=== PATIENT | male | born 2000 | race African-American/Black ===

== ENCOUNTER 2022-06-13 01:47 | Emergency (ER) | payer OTHER ==
[2022-06-13] MEDS ORDERED: Ketorolac Tromethamine 30 MG/ML VIAL ONE (02:28)
[2022-06-13 02:35] LABS: Hemoglobin 14.6 g/dL (13.5-17.5); MDiff Complete? YES; Mean Corpuscular HGB CONC 34.5 g/dL (32.0-36.0); Mean Corpuscular Hemoglobin 27.2 pg (27.0-33.0); Mean Corpuscular Volume 78.8 fl (81.2-95.1); Mean Platelet Volume 8.7 fl (7.4-10.4); Platelet Count 192 10x3/uL (150-450); Platelet Morphology Comment Appears Adequate; RBC Distribution Width 13.2 % (11.5-14.5); Red Blood Cell (RBC) Count 5.37 10x6/uL (4.32-5.72); White Blood Cell (WBC) Count 5.4 10x3/uL (3.5-10.5)
[2022-06-13 02:51] LABS: ALT (SGPT) 11 U/L (8-55); AST (SGOT) 15 U/L (5-34); Albumin 4.2 g/dL (3.5-5.0); Alkaline Phosphatase 48 U/L (50-130); Anion Gap 18 mmol/L (10-20); BUN (Urea Nitrogen) 13 mg/dL (8.9-20.6); Bilirubin, Total 0.4 mg/dL (0.2-1.2); Calc. Creatinine Clearance 0 mL/min (70-130); Calcium 9.2 mg/dL (7.8-10.44); Carbon Dioxide 22 mmol/L (22-29); Chloride 104 mmol/L (98-107); Estimated GFR 100; Globulin 3.2 g/dL (2.4-3.5); Glucose 87 mg/dL (70-105); Potassium 3.5 mmol/L (3.5-5.1); Protein, Total 7.4 g/dL (6.0-8.3); Sodium 140 mmol/L (136-145)
[2022-06-13 04:03] LABS: Band 5 % (5-11); Eosinophils 4 % (0-10); Lymphocytes 47 % (28-48); Metamyelocyte 1 % (0-0); Monocytes 9 % (0-4); Neutrophil 33 % (31-61); Reactive Lymphocytes 1 % (0-10)
[2022-06-13] MEDS ORDERED: Iopamidol 300 61% 100 ML VIAL FS ONE (08:58)
== END 2022-06-13 04:30 | disposition home or self-care (01) ==
LOC: CSHERS 01:47
DX: K60.2 Anal fissure, unspecified (principal)
CPT/HCPCS: 74177; 80053; 85025; 96374; J1885; Q9967

== ENCOUNTER 2023-02-24 09:45 | Emergency (ER) | payer OTHER, SELFPAY ==
[2023-02-24] MEDS ORDERED: Ketorolac Tromethamine 30 MG/ML VIAL ONE (10:12)
== END 2023-02-24 10:15 | disposition home or self-care (01) ==
LOC: CSHERS 09:45
DX: R51.9 Headache, unspecified (principal)
CPT/HCPCS: 96372; 99283; J1885

== ENCOUNTER 2023-05-18 16:25 | Emergency (ER) | payer OTHER | END 2023-05-18 17:28 | disposition home or self-care (01) | LOC: CSHERS 16:25 | DX: Z76.0 Encounter for issue of repeat prescription (principal) | CPT/HCPCS: 99281 ==

== ENCOUNTER 2023-12-08 22:20 | Emergency (ER) | payer OTHER, SELFPAY ==
[2023-12-08 23:32] LABS: #Basophils 0.02 10x3/uL (0.0-0.2); #Eosinphils 0.08 10x3/uL (0.0-0.5); #Monocytes 0.39 10x3/uL (0.0-1.1); #Neutrophils 1.94 10x3/uL (1.5-8.4); %Basophils 0.4 % (0.0-2.0); %Eosinophils 1.5 % (0.0-6.0); %Lymphocytes 53.5 % (18.0-47.0); %Monocytes 7.4 % (0.0-10.0); %Neutrophils 36.8 % (40.0-75.0); Hematocrit 43.4 % (38.8-50.0); Hemoglobin 14.9 g/dL (13.5-17.5); Mean Corpuscular HGB CONC 34.3 g/dL (32.0-36.0); Mean Corpuscular Hemoglobin 28.7 pg (27.0-33.0); Mean Corpuscular Volume 83.6 fL (81.2-95.1); Mean Platelet Volume 9.7 fL (7.4-10.4); Platelet Count 192 10x3/uL (150-450); Red Blood Cell (RBC) Count 5.19 10x6/uL (4.32-5.72); White Blood Cell (WBC) Count 5.3 10x3/uL (3.5-10.5)
[2023-12-08 23:43] LABS: ALT (SGPT) 9 U/L (8-55); AST (SGOT) 15 U/L (5-34); Albumin 4.1 g/dL (3.5-5.0); Alkaline Phosphatase 47 U/L (40-110); Anion Gap 13 mmol/L (10-20); BUN (Urea Nitrogen) 15 mg/dL (8.9-20.6); Bilirubin, Total 0.4 mg/dL (0.2-1.2); Calc. Creatinine Clearance 0 mL/min (70-130); Calcium 9.3 mg/dL (7.8-10.44); Carbon Dioxide 27 mmol/L (22-29); Chloride 105 mmol/L (98-107); Estimated GFR 75; Glucose 88 mg/dL (70-105); Magnesium 1.8 mg/dL (1.6-2.6); Potassium 3.9 mmol/L (3.5-5.1); Protein, Total 7.1 g/dL (6.0-8.3); Sodium 141 mmol/L (136-145)
== END 2023-12-09 00:53 | disposition home or self-care (01) ==
LOC: CSHERS 22:20
DX: R20.0 Anesthesia of skin (principal); R20.2 Paresthesia of skin
CPT/HCPCS: 80053; 83735; 85025; 93005

== ENCOUNTER 2024-03-08 07:12 | Emergency (ER) | payer OTHER ==
[2024-03-08] MEDS ORDERED: Ondansetron PF 4 MG/2 ML Vial ONE (08:13)
[2024-03-08 08:22] LABS: #Basophils 0.02 10x3/uL (0.0-0.2); #Eosinphils 0.13 10x3/uL (0.0-0.5); #Monocytes 0.37 10x3/uL (0.0-1.1); #Neutrophils 1.79 10x3/uL (1.5-8.4); %Basophils 0.4 % (0.0-2.0); %Eosinophils 2.4 % (0.0-6.0); %Lymphocytes 56.6 % (18.0-47.0); %Monocytes 6.9 % (0.0-10.0); %Neutrophils 33.5 % (40.0-75.0); Hematocrit 46.7 % (38.8-50.0); Hemoglobin 15.8 g/dL (13.5-17.5); Mean Corpuscular HGB CONC 33.8 g/dL (32.0-36.0); Mean Corpuscular Hemoglobin 28.4 pg (27.0-33.0); Mean Corpuscular Volume 83.8 fL (81.2-95.1); Mean Platelet Volume 9.3 fL (7.4-10.4); Platelet Count 186 10x3/uL (150-450); RBC Distribution Width 13.2 % (11.5-14.5); Red Blood Cell (RBC) Count 5.57 10x6/uL (4.32-5.72); White Blood Cell (WBC) Count 5.4 10x3/uL (3.5-10.5)
[2024-03-08 08:42] LABS: ALT (SGPT) 9 U/L (8-55); AST (SGOT) 19 U/L (5-34); Albumin 4.6 g/dL (3.5-5.0); Alkaline Phosphatase 56 U/L (40-110); Anion Gap 17 mmol/L (10-20); BUN (Urea Nitrogen) 12 mg/dL (8.9-20.6); Bilirubin, Total 0.5 mg/dL (0.2-1.2); Calc. Creatinine Clearance 0 mL/min (70-130); Calcium 10.3 mg/dL (7.8-10.44); Carbon Dioxide 23 mmol/L (22-29); Chloride 105 mmol/L (98-107); Estimated GFR 85; Globulin 3.3 g/dL (2.4-3.5); Glucose 88 mg/dL (70-105); Lipase 44 U/L (8-78); Magnesium 2.1 mg/dL (1.6-2.6); Potassium 3.6 mmol/L (3.5-5.1); Protein, Total 7.9 g/dL (6.0-8.3); Sodium 141 mmol/L (136-145)
== END 2024-03-08 09:03 | disposition home or self-care (01) ==
LOC: CSHERS 07:12
DX: R11.0 Nausea (principal); B20 Human immunodeficiency virus [HIV] disease
CPT/HCPCS: 80053; 83690; 83735; 85025; 96374; J2405

== ENCOUNTER 2025-02-19 15:05 | Inpatient (IN) | payer OTHER ==
[2025-02-19] MEDS ORDERED: diphenhydrAMINE 50 MG/ML VIAL ONE (15:44)
[2025-02-19] MEDS ORDERED: Metoclopramide HCl 10 MG (2 mL) VIAL ONE (15:44)
[2025-02-19] MEDS ORDERED: Acetaminophen 325 MG TAB ONE (15:45)
[2025-02-19 16:19] LABS: Hematocrit 52.6 % (38.8-50.0); Hemoglobin 17.0 g/dL (13.5-17.5); Mean Corpuscular Hemoglobin 27.2 pg (27.0-33.0); Mean Corpuscular Volume 84.0 fL (81.2-95.1); Platelet Count 155 10x3/uL (150-450); Red Blood Cell (RBC) Count 6.26 10x6/uL (4.32-5.72); White Blood Cell (WBC) Count 5.85 10x3/uL (3.5-10.5)
[2025-02-19 16:30] LABS: ALT (SGPT) 11 U/L (Less than 45); AST (SGOT) 22 U/L (11-34); Albumin 4.1 g/dL (3.1-4.5); Alkaline Phosphatase 56 U/L (40-110); Anion Gap 16 mmol/L (10-20); BUN (Urea Nitrogen) 26 mg/dL (8.9-20.6); Bilirubin, Total 0.5 mg/dL (0.3-1.2); Calc. Creatinine Clearance 0 mL/min (70-130); Calcium 8.8 mg/dL (7.8-10.44); Carbon Dioxide 26 mmol/L (22-29); Chloride 100 mmol/L (98-107); Globulin 3.9 g/dL (2.4-3.5); Glucose 113 mg/dL (70-105); Lipase 20 U/L (8-78); Potassium 3.6 mmol/L (3.5-5.1); Sodium 138 mmol/L (136-145)
[2025-02-19 17:04] LABS: Dohle Bodies SLIGHT; MDiff Complete? YES; Platelet Adequacy Comment Appears Adequate; Polychromasia SLIGHT = 2-3 cells (100X) (0-2/hpf); Toxic Granulation SLIGHT
[2025-02-19] MEDS ORDERED: Calcium Carbonate 500 MG ChewTAB PO PRN (19:32)
[2025-02-19] MEDS ORDERED: Ondansetron PF 4 MG/2 ML Vial IVP PRN (19:32)
[2025-02-19 19:42] LABS: Anion Gap 15 mmol/L (10-20); BUN (Urea Nitrogen) 25 mg/dL (8.9-20.6); Calc. Creatinine Clearance 0 mL/min (70-130); Calcium 8.1 mg/dL (7.8-10.44); Carbon Dioxide 25 mmol/L (22-29); Chloride 103 mmol/L (98-107); Glucose 111 mg/dL (70-105); Potassium 3.5 mmol/L (3.5-5.1); Sodium 139 mmol/L (136-145)
[2025-02-19] MEDS ORDERED: Electrolyte Replacement Protocol 1 EACH FS PRN (19:45)
[2025-02-19 20:30] LABS: Glucose, Urine (Dipstick) Normal (Negative); Leukocyte Negative (Negative); Protein, Urine (Dipstick) 100 mg/dl (Neg-Trace); Specific Gravity, Urine 1.020 (1.005-1.030)
[2025-02-19 20:53] LABS: Bacteria/HPF 2+ HPF (None Seen); CAUTI Indications for Culture Dysuria,urgency,freq; WBC/HPF 0-3 HPF (0-3)
[2025-02-19] MEDS ORDERED: Ciprofloxacin Lactate/D5W 400 MG in Premix 1 BAG IVPB SCH (21:00)
[2025-02-19 21:09] LABS: Urine Culture Reflex No No
[2025-02-19 21:31] VITALS: BMI 21.7
[2025-02-19] MEDS: cefTRIAXone\\ROCEPHIN 2 GM in Sodium Chloride 0.9% 100 ML IVPB SCH (22:52)
[2025-02-19] MEDS: Famotidine/PF 20 mg/2ml Vial SLOW IVP SCH (22:52)
[2025-02-19] MEDS: Acetaminophen 325 MG TAB PO PRN (23:09)
[2025-02-20 05:15] LABS: Hematocrit 40.4 % (38.8-50.0); Hemoglobin 13.4 g/dL (13.5-17.5); Mean Corpuscular Hemoglobin 27.5 pg (27.0-33.0); Mean Corpuscular Volume 83.0 fL (81.2-95.1); Platelet Count 151 10x3/uL (150-450); Red Blood Cell (RBC) Count 4.87 10x6/uL (4.32-5.72); White Blood Cell (WBC) Count 5.36 10x3/uL (3.5-10.5)
[2025-02-20 05:16] LABS: MDiff Complete? YES; Platelet Adequacy Comment Appears Adequate; RBC Morphology Within Normal Limits
[2025-02-20 05:44] LABS: ALT (SGPT) 9 U/L (Less than 45); AST (SGOT) 19 U/L (11-34); Albumin 2.9 g/dL (3.1-4.5); Alkaline Phosphatase 36 U/L (40-110); Anion Gap 10 mmol/L (10-20); BUN (Urea Nitrogen) 23 mg/dL (8.9-20.6); Bilirubin, Total 0.3 mg/dL (0.3-1.2); Calc. Creatinine Clearance 62 mL/min (70-130); Calcium 7.4 mg/dL (7.8-10.44); Carbon Dioxide 24 mmol/L (22-29); Chloride 107 mmol/L (98-107); Globulin 2.9 g/dL (2.4-3.5); Glucose 117 mg/dL (70-105); Magnesium 1.4 mg/dL (1.6-2.6); Potassium 3.1 mmol/L (3.5-5.1); Sodium 138 mmol/L (136-145)
[2025-02-20] MEDS: Magnesium 2 GM/50 ML(in water) 2 GM in Premix 1 BAG IVPB SCH (06:45)
[2025-02-20] MEDS: metroNIDAZOLE 500 MG TAB PO SCH (07:56)
[2025-02-20 12:52] LABS: Potassium 3.6 mmol/L (3.5-5.1)
[2025-02-20 14:28] LABS: Campy jejuni + coli by PCR Negative (Negative); STEC Shiga Toxin 1+2 Negative (Negative); Salmonella spp. by PCR Negative (Negative); Shigella spp + EIEC by PCR POSITIVE (Negative)
[2025-02-20 15:46] LABS: Anion Gap 11 mmol/L (10-20); BUN (Urea Nitrogen) 16 mg/dL (8.9-20.6); Calc. Creatinine Clearance 77 mL/min (70-130); Calcium 7.5 mg/dL (7.8-10.44); Carbon Dioxide 23 mmol/L (22-29); Chloride 108 mmol/L (98-107); Glucose 90 mg/dL (70-105); Magnesium 2.5 mg/dL (1.6-2.6); Potassium 3.4 mmol/L (3.5-5.1); Sodium 139 mmol/L (136-145)
[2025-02-21 05:28] LABS: Platelet Count 149 10x3/uL (150-450)
[2025-02-21 05:29] LABS: #Basophils Less than 0.03 10x3/uL (0.0-0.2); #Eosinophils 0.03 10x3/uL (0.0-0.5); #Monocytes 0.42 10x3/uL (0.0-1.1); #Neutrophils 3.22 10x3/uL (1.5-8.4); %Basophils 0.3 % (0.0-2.0); %Eosinophils 0.4 % (0.0-6.0); %Lymphocytes 48.8 % (18.0-47.0); %Monocytes 5.7 % (0.0-10.0); %Neutrophils 44.0 % (40.0-75.0); Hematocrit 40.8 % (38.8-50.0); Hemoglobin 13.3 g/dL (13.5-17.5); Mean Corpuscular Hemoglobin 27.1 pg (27.0-33.0); Mean Corpuscular Volume 83.3 fL (81.2-95.1); Red Blood Cell (RBC) Count 4.90 10x6/uL (4.32-5.72); White Blood Cell (WBC) Count 7.32 10x3/uL (3.5-10.5)
[2025-02-21 05:32] LABS: Anion Gap 9 mmol/L (10-20); BUN (Urea Nitrogen) 14 mg/dL (8.9-20.6); Calc. Creatinine Clearance 84 mL/min (70-130); Calcium 8.3 mg/dL (7.8-10.44); Carbon Dioxide 24 mmol/L (22-29); Chloride 111 mmol/L (98-107); Glucose 91 mg/dL (70-105); Magnesium 2.2 mg/dL (1.6-2.6); Potassium 4.0 mmol/L (3.5-5.1); Sodium 140 mmol/L (136-145)
[2025-02-21] MEDS ORDERED: PHOS-NAK 1 PKT PACK PO SCH (08:00)
[2025-02-21] MEDS ORDERED: Non-Formulary Medication 1 EACH (Bictegrav/Emtricit/Tenofov Ala [Biktarvy 50-200-25 Mg Tab PO SCH (09:00)
[2025-02-21 10:19] LABS: Campy jejuni + coli by PCR Negative (Negative); STEC Shiga Toxin 1+2 Negative (Negative); Salmonella spp. by PCR Negative (Negative); Shigella spp + EIEC by PCR POSITIVE (Negative)
[2025-02-21 21:09] LABS: %CD4 (Helper/Inducer) 60.0 % (30.8-58.5); Absolute CD4 1620 /uL (359-1519); Lymphocytes/Gated Cell Count 2.7 x10E3/uL (0.7-3.1); Total Lymphocyte 44 % (Not Estab.); WBC Total Count 6.1 x10E3/uL (3.4-10.8)
[2025-02-22 04:42] LABS: #Basophils 0.04 10x3/uL (0.0-0.2); #Eosinophils 0.10 10x3/uL (0.0-0.5); #Monocytes 0.55 10x3/uL (0.0-1.1); #Neutrophils 2.46 10x3/uL (1.5-8.4); %Basophils 0.6 % (0.0-2.0); %Eosinophils 1.4 % (0.0-6.0); %Lymphocytes 53.9 % (18.0-47.0); %Monocytes 7.8 % (0.0-10.0); %Neutrophils 34.9 % (40.0-75.0); Hematocrit 41.5 % (38.8-50.0); Hemoglobin 13.8 g/dL (13.5-17.5); Mean Corpuscular Hemoglobin 27.5 pg (27.0-33.0); Mean Corpuscular Volume 82.7 fL (81.2-95.1); Platelet Count 150 10x3/uL (150-450); Red Blood Cell (RBC) Count 5.02 10x6/uL (4.32-5.72); White Blood Cell (WBC) Count 7.05 10x3/uL (3.5-10.5)
[2025-02-22 04:58] LABS: ALT (SGPT) 9 U/L (Less than 45); AST (SGOT) 17 U/L (11-34); Albumin 3.1 g/dL (3.1-4.5); Alkaline Phosphatase 38 U/L (40-110); Anion Gap 11 mmol/L (10-20); BUN (Urea Nitrogen) 10 mg/dL (8.9-20.6); Bilirubin, Total 0.2 mg/dL (0.3-1.2); Calc. Creatinine Clearance 97 mL/min (70-130); Calcium 8.8 mg/dL (7.8-10.44); Carbon Dioxide 26 mmol/L (22-29); Chloride 108 mmol/L (98-107); Globulin 3.1 g/dL (2.4-3.5); Glucose 94 mg/dL (70-105); Magnesium 1.9 mg/dL (1.6-2.6); Potassium 4.1 mmol/L (3.5-5.1); Sodium 141 mmol/L (136-145)
[2025-02-22] MEDS: Magnesium 2 GM/50 ML(in water) 2 GM in Premix 1 BAG IVPB SCH (08:15)
[2025-02-22 17:13] LABS: HIV-1 Quantitative, RNA PCR 50.0 copies/mL (.); LOG10 HIV-1 RNA 1.699 (.)
[2025-02-22] MEDS ORDERED: Lidocaine 3%/Hydrocortisone 0.5% CREAM RC SCH (23:15)
[2025-02-23] MEDS: Hydrocortisone/Pramoxine (Proctofoam HC) 10 GM BOX TOP PRN (00:20)
[2025-02-23 05:30] LABS: #Basophils Less than 0.03 10x3/uL (0.0-0.2); #Eosinophils 0.11 10x3/uL (0.0-0.5); #Monocytes 0.42 10x3/uL (0.0-1.1); #Neutrophils 3.14 10x3/uL (1.5-8.4); %Basophils 0.3 % (0.0-2.0); %Eosinophils 1.5 % (0.0-6.0); %Lymphocytes 48.1 % (18.0-47.0); %Monocytes 5.6 % (0.0-10.0); %Neutrophils 42.2 % (40.0-75.0); Hematocrit 42.6 % (38.8-50.0); Hemoglobin 14.2 g/dL (13.5-17.5); Mean Corpuscular Hemoglobin 27.1 pg (27.0-33.0); Mean Corpuscular Volume 81.3 fL (81.2-95.1); Platelet Count 181 10x3/uL (150-450); Red Blood Cell (RBC) Count 5.24 10x6/uL (4.32-5.72); White Blood Cell (WBC) Count 7.44 10x3/uL (3.5-10.5)
[2025-02-23 05:46] LABS: ALT (SGPT) 13 U/L (Less than 45); AST (SGOT) 19 U/L (11-34); Albumin 3.4 g/dL (3.1-4.5); Alkaline Phosphatase 42 U/L (40-110); Anion Gap 11 mmol/L (10-20); BUN (Urea Nitrogen) 12 mg/dL (8.9-20.6); Bilirubin, Total 0.2 mg/dL (0.3-1.2); Calc. Creatinine Clearance 102 mL/min (70-130); Calcium 8.8 mg/dL (7.8-10.44); Carbon Dioxide 25 mmol/L (22-29); Chloride 107 mmol/L (98-107); Globulin 3.2 g/dL (2.4-3.5); Glucose 90 mg/dL (70-105); Magnesium 1.9 mg/dL (1.6-2.6); Potassium 3.7 mmol/L (3.5-5.1); Sodium 139 mmol/L (136-145)
[2025-02-23] MEDS: Magnesium 2 GM/50 ML(in water) 2 GM in Premix 1 BAG IVPB SCH (08:49)
[2025-02-23 12:25] VITALS: BP 99/61; TEMP 98
[2025-02-23] MEDS: cefTRIAXone\\ROCEPHIN 2 GM in Sodium Chloride 0.9% 100 ML IVPB SCH (13:34)
== END 2025-02-23 16:53 | disposition home or self-care (01) | DRG 372 ==
LOC: CSHERS 15:05 → SUATTDRO 15:05 → CSHTELE 19:31
PROVIDERS: ADMIT Internal Medicine; ATTEND Internal Medicine
DX: A03.0 Shigellosis due to Shigella dysenteriae (principal); E87.20 Acidosis, unspecified; N17.9 Acute kidney failure, unspecified; Q60.0 Renal agenesis, unilateral; R19.7 Diarrhea, unspecified; E86.0 Dehydration; Z21 Asymptomatic human immunodeficiency virus [HIV] infection status; F32.A Depression, unspecified; R01.1 Cardiac murmur, unspecified; Q98.4 Klinefelter syndrome, unspecified; Z98.890 Other specified postprocedural states
CPT/HCPCS: 36415; 71045; 74176; 80048; 80053; 81001; 83605; 83630; 83690; 83735; 84100; 84145; 85025; 86140; 86361; 87015; 87040; 87177; 87206; 87209; 87324; 87428; 87449; 87505; 87536; 87798; 93005; 93306; 94760; 94762; 96374; 96375; J0696; J1200; J2543; J2765; J3475; J7030